=== PATIENT | female | born 1940 | race Caucasian/White ===

== ENCOUNTER 2018-10-14 12:15 | Inpatient (IN) ==
[2018-10-14] MEDS ORDERED: methylPREDNISolone SOD SUC 40 MG/1 ML VIAL IM STA (12:45)
[2018-10-14] MEDS ORDERED: ALBUTEROL 2.5 MG/3 ML NEB RESP TX STA (12:45)
[2018-10-14 13:06] LABS: Basophils # 0.1 10*3/uL (0.0-0.2); Eosinophils # 0.3 10*3/uL (0.0-0.87); Eosinophils % 2.7 % (0.00-10.9); Hematocrit 38.1 VOL% (35.7-47.0); Hemoglobin 12.3 GM/DL (12.0-16.0); Immature Granulocytes % 0.5 %; Immature Granulocytes Absolute 0.06 #; Lymphocytes % 8.6 % (21.3-54.2); Mean Corpuscular HGB Conc 32.3 GM/DL (32-36); Mean Corpuscular Hemoglobin 31 PG (27-34); Mean Platelet Volume 9.5 FL (9.6-12.0); Monocytes # 1.3 10*3/uL (0.11-0.8); Monocytes % 11.1 % (1.7-12.7); Neutrophils # 8.9 10*3/uL (1.4-7.4); Neutrophils % 76.1 % (38.7-73.9); Platelet Count 282 T/CUMM (130-400); Red Blood Count 3.97 MC/CUMM (3.8-5.5); Red Cell Distribution Width 13.5 % (9.3-17.3); White Blood Count 11.7 T/CUMM (4-12)
[2018-10-14 13:32] LABS: Albumin 3.1 G/DL (3.4-5.0); Bilirubin,Total 0.5 MG/DL (0.2-1.0); Calcium 11.7 MG/DL (8.5-10.1); Osmolality,Calculated 277.8 MOS/KG (273-304); Potassium 3.9 MMOL/L (3.5-5.1)
[2018-10-14] MEDS ORDERED: ACETAMINOPHEN 325 MG TABLET PO PRN ×3 (14:24→17:48)
[2018-10-14] MEDS ORDERED: ONDANSETRON 4 MG/2 ML VIAL IV PRN ×3 (14:24→17:48)
[2018-10-14] MEDS ORDERED: ALBUTEROL 2.5 MG/3 ML NEB RESP TX PRN ×3 (14:27→17:48)
[2018-10-14] MEDS ORDERED: SODIUM CHLORIDE 0.45% 1,000 ML IV SCH ×2 (14:30→17:30)
[2018-10-14] MEDS ORDERED: ENOXAPARIN 40 MG/0.4 ML SYRINGE SUBCUT SCH ×2 (16:00→21:00)
[2018-10-14] MEDS ORDERED: methylPREDNISolone SOD SUC 40 MG/1 ML VIAL IV SCH ×2 (17:48→21:30)
[2018-10-14] MEDS ORDERED: LEVOFLOXACIN INJ 250 MG in PREMIX 1 EACH IV SCH (17:48)
[2018-10-14] MEDS: SODIUM CHLORIDE 0.45% 1,000 ML IV SCH (18:00)
[2018-10-14] MEDS ORDERED: ALBUTEROL 2.5 MG/3 ML NEB RESP TX SCH ×2 (19:00)
[2018-10-14] MEDS ORDERED: ARFORMOTEROL 15 MCG/2 ML NEB RESP TX SCH (19:00)
[2018-10-14] MEDS: ALBUTEROL 2.5 MG/3 ML NEB RESP TX SCH (20:40)
[2018-10-14] MEDS ORDERED: DOCUSATE SODIUM 100 MG CAPSULE PO SCH ×3 (21:00)
[2018-10-14] MEDS ORDERED: VERAPAMIL SR 180 MG TABLET PO SCH (21:00)
[2018-10-14] MEDS ORDERED: AZELASTINE NASAL 137 MCG/SPRAY 30 ML BOTTLE BOTH NARES SCH (21:00)
[2018-10-14] MEDS ORDERED: BUDESONIDE 0.5 MG/2 ML NEB RESP TX SCH (21:00)
[2018-10-14] MEDS: methylPREDNISolone SOD SUC 40 MG/1 ML VIAL IV SCH (22:29)
[2018-10-14] MEDS: LEVOFLOXACIN INJ 250 MG in PREMIX 1 EACH IV SCH (22:29)
[2018-10-14] MEDS: DOCUSATE SODIUM 100 MG CAPSULE PO SCH (22:30)
[2018-10-14] MEDS: ENOXAPARIN 40 MG/0.4 ML SYRINGE SUBCUT SCH (22:30)
[2018-10-14] MEDS: ZALEPLON 5 MG CAPSULE PO PRN (22:30)
[2018-10-15] MEDS: ALBUTEROL 2.5 MG/3 ML NEB RESP TX SCH ×3 (00:42→13:52)
[2018-10-15] MEDS: methylPREDNISolone SOD SUC 40 MG/1 ML VIAL IV SCH ×3 (06:40→21:32)
[2018-10-15] MEDS ORDERED: PANTOPRAZOLE 40 MG TABLET PO SCH ×2 (09:00)
[2018-10-15] MEDS ORDERED: TRIAMTERENE/HCTZ 37.5-25 MG TABLET PO SCH (09:00)
[2018-10-15] MEDS ORDERED: DHA PO SCH (09:00)
[2018-10-15] MEDS ORDERED: CHOLECALCIFEROL 4000 UNIT PO SCH (09:00)
[2018-10-15] MEDS ORDERED: OMEGA PO SCH (09:00)
[2018-10-15] MEDS ORDERED: [UNRECOGNIZED DRUG - OTHER] PO SCH (09:00)
[2018-10-15] MEDS ORDERED: CETIRIZINE 10 MG TABLET PO SCH (09:00)
[2018-10-15] MEDS ORDERED: ASPIRIN EC 81 MG TABLET PO SCH (09:00)
[2018-10-15] MEDS ORDERED: FISH OIL PO SCH (09:00)
[2018-10-15] MEDS ORDERED: EPA PO SCH (09:00)
[2018-10-15] MEDS ORDERED: LEVOFLOXACIN 500 MG TABLET PO SCH (09:00)
[2018-10-15] MEDS ORDERED: NON-FORMULARY MEDICATION (Biotin [Biotin] 10,000 MCG) PO SCH (09:00)
[2018-10-15] MEDS ORDERED: NON-FORMULARY MEDICATION (Saccharomyces Boulardii [Probiotic] 250 MG) PO SCH (09:00)
[2018-10-15] MEDS: valACYclovir 500 MG TABLET PO SCH ×3 (10:17→21:32)
[2018-10-15] MEDS: DOCUSATE SODIUM 100 MG CAPSULE PO SCH ×2 (10:19→21:32)
[2018-10-15] MEDS: METOPROLOL TARTRATE 25 MG TABLET PO SCH (10:19)
[2018-10-15] MEDS: PANTOPRAZOLE 40 MG TABLET PO SCH (10:19)
[2018-10-15] MEDS: CLINDAMYCIN INJ 300 MG in PREMIX 1 EACH IV SCH ×2 (13:44→18:17)
[2018-10-15] MEDS: MONTELUKAST 10 MG TABLET PO SCH (13:45)
[2018-10-15] MEDS: ALBUTEROL 2 MG TABLET PO SCH ×2 (13:45→21:33)
[2018-10-15 13:53] LABS: Calcium 11.3 MG/DL (8.5-10.1); Osmolality,Calculated 282.7 MOS/KG (273-304); Potassium 3.7 MMOL/L (3.5-5.1)
[2018-10-15] MEDS ORDERED: THEOPHYLLINE ER 100 MG TABLET PO SCH (17:00)
[2018-10-15] MEDS: THEOPHYLLINE ER 300 MG TABLET PO SCH (18:17)
[2018-10-15] MEDS: FLUCONAZOLE 150 MG TABLET PO SCH (21:32)
[2018-10-15] MEDS: ZALEPLON 5 MG CAPSULE PO PRN (21:32)
[2018-10-15] MEDS: ENOXAPARIN 40 MG/0.4 ML SYRINGE SUBCUT SCH (21:33)
[2018-10-15] MEDS: LEVOFLOXACIN INJ 250 MG in PREMIX 1 EACH IV SCH (21:38)
[2018-10-16] MEDS: CLINDAMYCIN INJ 300 MG in PREMIX 1 EACH IV SCH ×4 (01:38→18:14)
[2018-10-16 03:48] LABS: Basophils % 0.1 % (0.0-0.8); Hematocrit 38.7 VOL% (35.7-47.0); Hemoglobin 12.7 GM/DL (12.0-16.0); Immature Granulocytes % 0.7 %; Immature Granulocytes Absolute 0.13 #; Lymphocytes # 1.2 10*3/uL (1.4-4.0); Mean Corpuscular HGB Conc 32.8 GM/DL (32-36); Mean Corpuscular Hemoglobin 32 PG (27-34); Mean Corpuscular Volume 96.3 FL (87-102); Mean Platelet Volume 9.5 FL (9.6-12.0); Monocytes # 0.8 10*3/uL (0.11-0.8); Monocytes % 4.2 % (1.7-12.7); Neutrophils # 17.7 10*3/uL (1.4-7.4); Platelet Count 312 T/CUMM (130-400); Red Blood Count 4.02 MC/CUMM (3.8-5.5); Red Cell Distribution Width 13.4 % (9.3-17.3); White Blood Count 19.9 T/CUMM (4-12)
[2018-10-16 04:24] LABS: Calcium 10.9 MG/DL (8.5-10.1); Osmolality,Calculated 290.3 MOS/KG (273-304); Potassium 3.4 MMOL/L (3.5-5.1)
[2018-10-16] MEDS: methylPREDNISolone SOD SUC 40 MG/1 ML VIAL IV SCH ×3 (06:31→22:01)
[2018-10-16] MEDS: ALBUTEROL 2 MG TABLET PO SCH ×3 (06:32→22:00)
[2018-10-16] MEDS: DOCUSATE SODIUM 100 MG CAPSULE PO SCH ×2 (09:18→21:59)
[2018-10-16] MEDS: valACYclovir 500 MG TABLET PO SCH ×3 (09:18→21:59)
[2018-10-16] MEDS: MONTELUKAST 10 MG TABLET PO SCH (09:18)
[2018-10-16] MEDS: PANTOPRAZOLE 40 MG TABLET PO SCH (09:18)
[2018-10-16] MEDS: METOPROLOL TARTRATE 25 MG TABLET PO SCH (09:18)
[2018-10-16] MEDS: THEOPHYLLINE ER 300 MG TABLET PO SCH ×2 (09:18→17:02)
[2018-10-16] MEDS: AZELASTINE NASAL 137 MCG/SPRAY 30 ML BOTTLE BOTH NARES SCH ×2 (15:50→22:01)
[2018-10-16] MEDS: ZALEPLON 5 MG CAPSULE PO SCH (21:59)
[2018-10-16] MEDS: FLUCONAZOLE 150 MG TABLET PO SCH (21:59)
[2018-10-16] MEDS: LEVOFLOXACIN INJ 250 MG in PREMIX 1 EACH IV SCH (22:00)
[2018-10-16] MEDS: ENOXAPARIN 40 MG/0.4 ML SYRINGE SUBCUT SCH (22:00)
[2018-10-17] MEDS: CLINDAMYCIN INJ 300 MG in PREMIX 1 EACH IV SCH ×4 (02:36→18:10)
[2018-10-17] MEDS: methylPREDNISolone SOD SUC 40 MG/1 ML VIAL IV SCH ×3 (06:32→21:36)
[2018-10-17] MEDS: ALBUTEROL 2 MG TABLET PO SCH ×3 (06:35→21:37)
[2018-10-17 08:24] LABS: Osmolality,Calculated 291.1 MOS/KG (273-304); Potassium 3.5 MMOL/L (3.5-5.1)
[2018-10-17] MEDS: METOPROLOL TARTRATE 25 MG TABLET PO SCH (09:37)
[2018-10-17] MEDS: THEOPHYLLINE ER 300 MG TABLET PO SCH ×2 (09:38→16:38)
[2018-10-17] MEDS: PANTOPRAZOLE 40 MG TABLET PO SCH (09:38)
[2018-10-17] MEDS: MONTELUKAST 10 MG TABLET PO SCH (09:38)
[2018-10-17] MEDS: AZELASTINE NASAL 137 MCG/SPRAY 30 ML BOTTLE BOTH NARES SCH ×2 (09:38→21:38)
[2018-10-17] MEDS: DOCUSATE SODIUM 100 MG CAPSULE PO SCH ×2 (09:38→21:37)
[2018-10-17] MEDS: valACYclovir 500 MG TABLET PO SCH ×3 (09:38→22:02)
[2018-10-17] MEDS: DORNASE ALFA 2.5 MG/2.5 ML VIAL RESP TX SCH ×2 (12:34→20:31)
[2018-10-17] MEDS: SODIUM CHLORIDE 0.45% 1,000 ML IV SCH ×2 (15:37→15:38)
[2018-10-17] MEDS: ENOXAPARIN 40 MG/0.4 ML SYRINGE SUBCUT SCH (21:37)
[2018-10-17] MEDS: ZALEPLON 5 MG CAPSULE PO SCH (21:37)
[2018-10-17] MEDS: LEVOFLOXACIN INJ 250 MG in PREMIX 1 EACH IV SCH (21:38)
[2018-10-18] MEDS: CLINDAMYCIN INJ 300 MG in PREMIX 1 EACH IV SCH ×4 (00:57→20:28)
[2018-10-18] MEDS: methylPREDNISolone SOD SUC 40 MG/1 ML VIAL IV SCH ×3 (04:55→20:28)
[2018-10-18] MEDS: SODIUM CHLORIDE 0.45% 1,000 ML IV SCH ×2 (04:58→10:24)
[2018-10-18 05:24] LABS: Basophils % 0.2 % (0.0-0.8); Hematocrit 34.3 VOL% (35.7-47.0); Hemoglobin 11.2 GM/DL (12.0-16.0); Immature Granulocytes % 1.6 %; Lymphocytes # 1.2 10*3/uL (1.4-4.0); Lymphocytes % 9.5 % (21.3-54.2); Mean Corpuscular HGB Conc 32.7 GM/DL (32-36); Mean Corpuscular Hemoglobin 31 PG (27-34); Mean Corpuscular Volume 96.1 FL (87-102); Mean Platelet Volume 10.5 FL (9.6-12.0); Monocytes # 0.7 10*3/uL (0.11-0.8); Monocytes % 5.8 % (1.7-12.7); Neutrophils # 10.5 10*3/uL (1.4-7.4); Neutrophils % 82.9 % (38.7-73.9); Platelet Count 275 T/CUMM (130-400); Red Blood Count 3.57 MC/CUMM (3.8-5.5); Red Cell Distribution Width 13.6 % (9.3-17.3); White Blood Count 12.7 T/CUMM (4-12)
[2018-10-18 05:57] LABS: Calcium 9.7 MG/DL (8.5-10.1); Osmolality,Calculated 295.8 MOS/KG (273-304); Potassium 3.3 MMOL/L (3.5-5.1)
[2018-10-18] MEDS: ALBUTEROL 2 MG TABLET PO SCH ×3 (06:07→21:51)
[2018-10-18] MEDS: DORNASE ALFA 2.5 MG/2.5 ML VIAL RESP TX SCH ×2 (07:49→19:30)
[2018-10-18] MEDS: DOCUSATE SODIUM 100 MG CAPSULE PO SCH ×2 (10:26→20:28)
[2018-10-18] MEDS: METOPROLOL TARTRATE 25 MG TABLET PO SCH (10:26)
[2018-10-18] MEDS: MONTELUKAST 10 MG TABLET PO SCH (10:26)
[2018-10-18] MEDS: THEOPHYLLINE ER 300 MG TABLET PO SCH ×2 (10:26→17:20)
[2018-10-18] MEDS: PANTOPRAZOLE 40 MG TABLET PO SCH (10:26)
[2018-10-18] MEDS: AZELASTINE NASAL 137 MCG/SPRAY 30 ML BOTTLE BOTH NARES SCH ×2 (10:27→20:28)
[2018-10-18] MEDS: ENOXAPARIN 40 MG/0.4 ML SYRINGE SUBCUT SCH (20:28)
[2018-10-18] MEDS: ZALEPLON 5 MG CAPSULE PO SCH (20:28)
[2018-10-18] MEDS: LEVOFLOXACIN INJ 250 MG in PREMIX 1 EACH IV SCH (21:52)
[2018-10-19] MEDS: CLINDAMYCIN INJ 300 MG in PREMIX 1 EACH IV SCH ×4 (01:16→21:55)
[2018-10-19] MEDS: methylPREDNISolone SOD SUC 40 MG/1 ML VIAL IV SCH ×3 (05:31→20:40)
[2018-10-19] MEDS: ALBUTEROL 2 MG TABLET PO SCH ×3 (05:31→22:21)
[2018-10-19] MEDS: SODIUM CHLORIDE 0.45% 1,000 ML IV SCH (07:34)
[2018-10-19] MEDS: DORNASE ALFA 2.5 MG/2.5 ML VIAL RESP TX SCH ×2 (07:35→19:47)
[2018-10-19] MEDS: MONTELUKAST 10 MG TABLET PO SCH (08:13)
[2018-10-19] MEDS: METOPROLOL TARTRATE 25 MG TABLET PO SCH (08:13)
[2018-10-19] MEDS: DOCUSATE SODIUM 100 MG CAPSULE PO SCH ×2 (08:13→20:50)
[2018-10-19] MEDS: PANTOPRAZOLE 40 MG TABLET PO SCH (08:13)
[2018-10-19] MEDS: THEOPHYLLINE ER 300 MG TABLET PO SCH ×2 (08:13→17:35)
[2018-10-19] MEDS: AZELASTINE NASAL 137 MCG/SPRAY 30 ML BOTTLE BOTH NARES SCH ×2 (08:17→20:54)
[2018-10-19] MEDS: LEVOFLOXACIN INJ 250 MG in PREMIX 1 EACH IV SCH (20:47)
[2018-10-19] MEDS: ZALEPLON 5 MG CAPSULE PO SCH (20:50)
[2018-10-19] MEDS: ENOXAPARIN 40 MG/0.4 ML SYRINGE SUBCUT SCH (20:52)
[2018-10-20] MEDS: CLINDAMYCIN INJ 300 MG in PREMIX 1 EACH IV SCH ×4 (03:22→21:39)
[2018-10-20] MEDS: methylPREDNISolone SOD SUC 40 MG/1 ML VIAL IV SCH ×2 (05:18→21:51)
[2018-10-20] MEDS: ALBUTEROL 2 MG TABLET PO SCH ×3 (06:17→21:39)
[2018-10-20] MEDS: SODIUM CHLORIDE 0.45% 1,000 ML IV SCH (06:58)
[2018-10-20] MEDS ORDERED: HYDROcodone/CHLORPHENIRAMINE ER 5 ML UDCUP PO ONE (07:00)
[2018-10-20] MEDS ORDERED: GLYCOPYRROLATE 0.4 MG/2 ML VIAL IM ONE (07:00)
[2018-10-20] MEDS ORDERED: PROMETHAZINE 25 MG/1 ML VIAL IM ONE (07:00)
[2018-10-20] MEDS ORDERED: MIDAZOLAM 2 MG/2 ML VIAL ONE (07:19)
[2018-10-20] MEDS ORDERED: LIDOCAINE 1% 20 ML VIAL MISC INJ ONE (07:30)
[2018-10-20] MEDS ORDERED: LIDOCAINE 2% 20 ML VIAL RESP TX ONE (07:30)
[2018-10-20] MEDS ORDERED: LIDOCAINE 2% VISCOUS 100 ML BOTTLE SWISH/SPIT ONE (07:30)
[2018-10-20] MEDS ORDERED: MIDAZOLAM 2 MG/2 ML VIAL IV ONE (07:30)
[2018-10-20] MEDS: DORNASE ALFA 2.5 MG/2.5 ML VIAL RESP TX SCH (07:50)
[2018-10-20] MEDS: METOPROLOL TARTRATE 25 MG TABLET PO SCH (09:46)
[2018-10-20] MEDS: PANTOPRAZOLE 40 MG TABLET PO SCH (09:46)
[2018-10-20] MEDS: THEOPHYLLINE ER 300 MG TABLET PO SCH ×2 (09:46→16:49)
[2018-10-20] MEDS: DOCUSATE SODIUM 100 MG CAPSULE PO SCH ×2 (09:46→20:25)
[2018-10-20] MEDS: MONTELUKAST 10 MG TABLET PO SCH (09:46)
[2018-10-20] MEDS: AZELASTINE NASAL 137 MCG/SPRAY 30 ML BOTTLE BOTH NARES SCH ×2 (09:47→20:24)
[2018-10-20] MEDS: LEVOFLOXACIN INJ 250 MG in PREMIX 1 EACH IV SCH ×2 (20:23→20:35)
[2018-10-20] MEDS: ENOXAPARIN 40 MG/0.4 ML SYRINGE SUBCUT SCH (20:25)
[2018-10-20] MEDS: ZALEPLON 5 MG CAPSULE PO SCH (21:39)
[2018-10-21] MEDS: CLINDAMYCIN INJ 300 MG in PREMIX 1 EACH IV SCH (05:50)
[2018-10-21] MEDS: ALBUTEROL 2 MG TABLET PO SCH ×3 (07:11→22:13)
[2018-10-21] MEDS: MONTELUKAST 10 MG TABLET PO SCH (08:44)
[2018-10-21] MEDS: DOCUSATE SODIUM 100 MG CAPSULE PO SCH ×2 (08:44→20:39)
[2018-10-21] MEDS: POTASSIUM CHLORIDE 20 MEQ TABLET PO PRN ×3 (08:44→13:16)
[2018-10-21] MEDS: THEOPHYLLINE ER 300 MG TABLET PO SCH ×2 (08:44→16:58)
[2018-10-21] MEDS: METOPROLOL TARTRATE 25 MG TABLET PO SCH (08:44)
[2018-10-21] MEDS: PANTOPRAZOLE 40 MG TABLET PO SCH (08:44)
[2018-10-21] MEDS: methylPREDNISolone SOD SUC 40 MG/1 ML VIAL IV SCH ×2 (08:45→20:35)
[2018-10-21] MEDS: AZELASTINE NASAL 137 MCG/SPRAY 30 ML BOTTLE BOTH NARES SCH ×2 (08:45→20:41)
[2018-10-21] MEDS: LEVOFLOXACIN INJ 250 MG in PREMIX 1 EACH IV SCH (20:37)
[2018-10-21] MEDS: ZALEPLON 5 MG CAPSULE PO SCH (20:39)
[2018-10-21] MEDS: ENOXAPARIN 40 MG/0.4 ML SYRINGE SUBCUT SCH (20:40)
[2018-10-22] MEDS: ALBUTEROL 2 MG TABLET PO SCH ×2 (07:17→15:25)
[2018-10-22] MEDS: AZELASTINE NASAL 137 MCG/SPRAY 30 ML BOTTLE BOTH NARES SCH (08:52)
[2018-10-22] MEDS: THEOPHYLLINE ER 300 MG TABLET PO SCH (08:53)
[2018-10-22] MEDS: DOCUSATE SODIUM 100 MG CAPSULE PO SCH (08:53)
[2018-10-22] MEDS: METOPROLOL TARTRATE 25 MG TABLET PO SCH (08:53)
[2018-10-22] MEDS: PANTOPRAZOLE 40 MG TABLET PO SCH (08:53)
[2018-10-22] MEDS: MONTELUKAST 10 MG TABLET PO SCH (08:53)
[2018-10-22] MEDS: methylPREDNISolone SOD SUC 40 MG/1 ML VIAL IV SCH (08:53)
[2018-10-22 11:42] VITALS: BP 150/83
== END 2018-10-22 16:33 | disposition home health service (06) | DRG 166 ==
LOC: N.ED 12:15 → N.EDINP 14:24 → N.2E 16:42
PROVIDERS: ADMIT Family Medicine; ATTEND Family Medicine

== ENCOUNTER 2019-11-09 05:42 | Inpatient (IN) ==
[2019-11-07 12:02] LABS: Basophils # 0.1 10*3/uL (0.0-0.2); Basophils % 1.3 % (0.0-0.8); Eosinophils # 0.2 10*3/uL (0.0-0.87); Eosinophils % 2.5 % (0.00-10.9); Hematocrit 42.8 VOL% (35.7-47.0); Hemoglobin 13.8 GM/DL (12.0-16.0); Immature Granulocytes % 0.2 %; Immature Granulocytes Absolute 0.01 #; Lymphocytes # 1.8 10*3/uL (1.4-4.0); Lymphocytes % 29.3 % (21.3-54.2); Mean Corpuscular HGB Conc 32.2 GM/DL (32-36); Mean Corpuscular Volume 95.3 FL (87-102); Mean Platelet Volume 10.4 FL (9.6-12.0); Monocytes % 10.5 % (1.7-12.7); Neutrophils % 56.2 % (38.7-73.9); Platelet Count 200 T/CUMM (130-400); Red Blood Count 4.49 MC/CUMM (3.8-5.5); Red Cell Distribution Width 12.3 % (9.3-17.3)
[2019-11-07 12:31] LABS: Albumin 3.5 G/DL (3.4-5.0); Bilirubin,Total 0.7 MG/DL (0.2-1.0); Calcium 9.9 MG/DL (8.5-10.1); Osmolality,Calculated 279.3 MOS/KG (273-304); Total Protein 7.4 G/DL (6.4-8.3)
[2019-11-09] MEDS ORDERED: ceFAZolin 1,000 MG VIAL ONE (06:00)
[2019-11-09] MEDS ORDERED: LACTATED RINGERS 1,000 ML IV SCH (06:30)
[2019-11-09] MEDS ORDERED: BUPIVACAINE 0.25% /EPI 10 ML VIAL ONE (06:52)
[2019-11-09] MEDS ORDERED: LIDOCAINE 1%/EPI INJ 20 ML VIAL ONE (06:52)
[2019-11-09] MEDS ORDERED: TISSUE ADHESIVE 1 EACH APPLICATOR TOP ONE (06:52)
[2019-11-09] MEDS ORDERED: CLINDAMYCIN INJ 50 ML IV ONE (07:10)
[2019-11-09] MEDS ORDERED: CLINDAMYCIN INJ 900 MG in PREMIX 1 EACH IV STA (07:16)
[2019-11-09] MEDS ORDERED: FAMOTIDINE 20 MG/2 ML VIAL IV ONE (07:40)
[2019-11-09] MEDS ORDERED: ALBUTEROL/IPRATROPIUM 3 ML NEB RESP TX PRN (08:28)
[2019-11-09] MEDS ORDERED: ACETAMINOPHEN 325 MG TABLET PO PRN (08:28)
[2019-11-09] MEDS ORDERED: KETOROLAC 15 MG/1 ML VIAL IV PRN (08:28)
[2019-11-09] MEDS ORDERED: BISACODYL 5 MG TABLET PO PRN (08:33)
[2019-11-09] MEDS ORDERED: propofoL 200 MG/20 ML VIAL IV ONE (08:36)
[2019-11-09] MEDS ORDERED: LIDOCAINE 2% 5 ML VIAL ONE (08:36)
[2019-11-09] MEDS ORDERED: GLYCOPYRROLATE 0.4 MG/2 ML VIAL ONE (08:37)
[2019-11-09] MEDS ORDERED: ROCURONIUM 100 MG/10 ML VIAL IV ONE (08:37)
[2019-11-09] MEDS ORDERED: NEOSTIGMINE 10 MG/10 ML VIAL ONE (08:37)
[2019-11-09] MEDS ORDERED: SEVOFLURANE 1 UNIT/15 MINUTE INH ONE (08:37)
[2019-11-09] MEDS ORDERED: ACETAMINOPHEN 1,000 MG/100 ML VIAL IV ONE (08:37)
[2019-11-09] MEDS ORDERED: fentaNYL 100 MCG/2 ML VIAL ONE (08:37)
[2019-11-09] MEDS ORDERED: DEXAMETHASONE 4 MG/1 ML VIAL ONE (08:37)
[2019-11-09] MEDS ORDERED: ONDANSETRON 4 MG/2 ML VIAL IV PRN (08:38)
[2019-11-09] MEDS: HYDROmorphone 2 MG/1 ML VIAL IV PRN ×2 (08:43→09:15)
[2019-11-09] MEDS: BUDESONIDE 0.5 MG/2 ML NEB RESP TX SCH ×2 (10:40→19:21)
[2019-11-09] MEDS: METOPROLOL TARTRATE 25 MG TABLET PO SCH ×2 (12:00→21:20)
[2019-11-09] MEDS: VERAPAMIL SR 180 MG TABLET PO SCH (12:00)
[2019-11-09] MEDS: TRIAMTERENE/HCTZ 37.5-25 MG TABLET PO SCH (12:09)
[2019-11-09] MEDS: PANTOPRAZOLE 40 MG TABLET PO SCH (12:10)
[2019-11-09] MEDS ORDERED: ALBUTEROL 2.5 MG/3 ML NEB RESP TX PRN (13:00)
[2019-11-09] MEDS: ONDANSETRON 4 MG/2 ML VIAL IV PRN (14:32)
[2019-11-09] MEDS: CLINDAMYCIN INJ 900 MG in PREMIX 1 EACH IV SCH ×2 (15:01→22:18)
[2019-11-09] MEDS: LACTATED RINGERS 1,000 ML IV SCH ×3 (15:03→23:30)
[2019-11-09] MEDS: ARFORMOTEROL 15 MCG/2 ML NEB RESP TX SCH (19:19)
[2019-11-09] MEDS: MELATONIN 3 MG TABLET PO SCH (21:20)
[2019-11-10 05:07] LABS: Basophils % 0.2 % (0.0-0.8); Hematocrit 36.9 VOL% (35.7-47.0); Hemoglobin 12.1 GM/DL (12.0-16.0); Immature Granulocytes % 0.2 %; Immature Granulocytes Absolute 0.02 #; Lymphocytes # 1.1 10*3/uL (1.4-4.0); Mean Corpuscular HGB Conc 32.8 GM/DL (32-36); Mean Corpuscular Volume 93.7 FL (87-102); Mean Platelet Volume 11.1 FL (9.6-12.0); Neutrophils % 78.6 % (38.7-73.9); Platelet Count 194 T/CUMM (130-400); Red Blood Count 3.94 MC/CUMM (3.8-5.5); White Blood Count 8.1 T/CUMM (4-12)
[2019-11-10 05:14] LABS: PT Patient Result 10.7 SECS (9.6-12.2)
[2019-11-10 05:40] LABS: Albumin 2.9 G/DL (3.4-5.0); Bilirubin,Total 1.3 MG/DL (0.2-1.0); Osmolality,Calculated 284.1 MOS/KG (273-304); Total Protein 6.2 G/DL (6.4-8.3)
[2019-11-10] MEDS: BUDESONIDE 0.5 MG/2 ML NEB RESP TX SCH ×2 (07:26→20:02)
[2019-11-10] MEDS: ARFORMOTEROL 15 MCG/2 ML NEB RESP TX SCH ×2 (07:26→20:02)
[2019-11-10] MEDS: LACTATED RINGERS 1,000 ML IV SCH ×4 (07:54→18:25)
[2019-11-10] MEDS ORDERED: INDOMETHACIN SUPP 50 MG SUPP RECTAL ONE ×2 (08:00→11:26)
[2019-11-10] MEDS: PANTOPRAZOLE 40 MG TABLET PO SCH (08:47)
[2019-11-10] MEDS: METOPROLOL TARTRATE 25 MG TABLET PO SCH ×2 (08:47→20:09)
[2019-11-10] MEDS: VERAPAMIL SR 180 MG TABLET PO SCH (08:47)
[2019-11-10] MEDS: TRIAMTERENE/HCTZ 37.5-25 MG TABLET PO SCH (08:47)
[2019-11-10] MEDS ORDERED: LIDOCAINE 2% 5 ML VIAL ONE (10:00)
[2019-11-10] MEDS ORDERED: ONDANSETRON 4 MG/2 ML VIAL ONE (10:00)
[2019-11-10] MEDS ORDERED: ESMOLOL 100 MG/10 ML VIAL IV ONE (10:00)
[2019-11-10] MEDS ORDERED: ROCURONIUM 100 MG/10 ML VIAL IV ONE (10:00)
[2019-11-10] MEDS ORDERED: fentaNYL 100 MCG/2 ML VIAL ONE (13:07)
[2019-11-10] MEDS ORDERED: SEVOFLURANE 1 UNIT/15 MINUTE INH ONE (15:27)
[2019-11-10] MEDS: MELATONIN 3 MG TABLET PO SCH (20:09)
[2019-11-11] MEDS: LACTATED RINGERS 1,000 ML IV SCH ×4 (01:55→20:52)
[2019-11-11 05:54] LABS: Basophils % 0.4 % (0.0-0.8); Eosinophils % 0.5 % (0.00-10.9); Hematocrit 36.3 VOL% (35.7-47.0); Immature Granulocytes % 0.1 %; Immature Granulocytes Absolute 0.01 #; Lymphocytes # 1.4 10*3/uL (1.4-4.0); Lymphocytes % 18.1 % (21.3-54.2); Mean Corpuscular HGB Conc 33.1 GM/DL (32-36); Mean Corpuscular Volume 93.1 FL (87-102); Mean Platelet Volume 10.8 FL (9.6-12.0); Monocytes % 9.3 % (1.7-12.7); Neutrophils % 71.6 % (38.7-73.9); Platelet Count 171 T/CUMM (130-400); Red Cell Distribution Width 12.4 % (9.3-17.3); White Blood Count 7.8 T/CUMM (4-12)
[2019-11-11 06:18] LABS: Albumin 2.7 G/DL (3.4-5.0); Bilirubin,Total 1.1 MG/DL (0.2-1.0); Calcium 8.4 MG/DL (8.5-10.1); Osmolality,Calculated 279.3 MOS/KG (273-304); Total Protein 5.6 G/DL (6.4-8.3)
[2019-11-11] MEDS: BUDESONIDE 0.5 MG/2 ML NEB RESP TX SCH ×2 (08:09→19:45)
[2019-11-11] MEDS: ARFORMOTEROL 15 MCG/2 ML NEB RESP TX SCH ×2 (08:09→19:45)
[2019-11-11] MEDS: PANTOPRAZOLE 40 MG TABLET PO SCH (08:50)
[2019-11-11] MEDS: METOPROLOL TARTRATE 25 MG TABLET PO SCH ×2 (08:50→20:52)
[2019-11-11] MEDS: TRIAMTERENE/HCTZ 37.5-25 MG TABLET PO SCH (08:51)
[2019-11-11] MEDS: ASPIRIN EC 81 MG TABLET PO SCH (08:51)
[2019-11-11] MEDS: VERAPAMIL SR 180 MG TABLET PO SCH (08:51)
[2019-11-11] MEDS: ONDANSETRON 4 MG/2 ML VIAL IV PRN ×2 (10:11→20:54)
[2019-11-11] MEDS: MORPHINE 4 MG/1 ML VIAL IV PRN ×2 (10:11→20:55)
[2019-11-11] MEDS: MELATONIN 3 MG TABLET PO SCH (20:53)
[2019-11-12] MEDS: LACTATED RINGERS 1,000 ML IV SCH ×4 (02:05→21:08)
[2019-11-12 06:08] LABS: Basophils % 0.3 % (0.0-0.8); Eosinophils # 0.1 10*3/uL (0.0-0.87); Eosinophils % 0.6 % (0.00-10.9); Hematocrit 34.8 VOL% (35.7-47.0); Hemoglobin 11.6 GM/DL (12.0-16.0); Immature Granulocytes % 0.4 %; Immature Granulocytes Absolute 0.04 #; Lymphocytes # 1.4 10*3/uL (1.4-4.0); Lymphocytes % 13.7 % (21.3-54.2); Mean Corpuscular HGB Conc 33.3 GM/DL (32-36); Mean Corpuscular Volume 92.6 FL (87-102); Mean Platelet Volume 10.7 FL (9.6-12.0); Monocytes % 10.7 % (1.7-12.7); Neutrophils % 74.3 % (38.7-73.9); Platelet Count 171 T/CUMM (130-400); Red Blood Count 3.76 MC/CUMM (3.8-5.5); Red Cell Distribution Width 12.2 % (9.3-17.3); White Blood Count 10.2 T/CUMM (4-12)
[2019-11-12 06:26] LABS: Albumin 2.4 G/DL (3.4-5.0); Bilirubin,Total 0.9 MG/DL (0.2-1.0); Calcium 8.1 MG/DL (8.5-10.1); Osmolality,Calculated 269.8 MOS/KG (273-304); Total Protein 5.3 G/DL (6.4-8.3)
[2019-11-12] MEDS: ARFORMOTEROL 15 MCG/2 ML NEB RESP TX SCH ×2 (08:01→19:29)
[2019-11-12] MEDS: BUDESONIDE 0.5 MG/2 ML NEB RESP TX SCH ×2 (08:01→19:29)
[2019-11-12] MEDS: ASPIRIN EC 81 MG TABLET PO SCH (09:13)
[2019-11-12] MEDS: METOPROLOL TARTRATE 25 MG TABLET PO SCH ×2 (09:13→20:07)
[2019-11-12] MEDS: PANTOPRAZOLE 40 MG TABLET PO SCH (09:13)
[2019-11-12] MEDS: TRIAMTERENE/HCTZ 37.5-25 MG TABLET PO SCH (09:13)
[2019-11-12] MEDS: VERAPAMIL SR 180 MG TABLET PO SCH (09:13)
[2019-11-12] MEDS: MORPHINE 4 MG/1 ML VIAL IV PRN (14:18)
[2019-11-12] MEDS: ONDANSETRON 4 MG/2 ML VIAL IV PRN (14:19)
[2019-11-12] MEDS: POTASSIUM CHLORIDE RIDER 10 MEQ in PREMIX 1 EACH IV SCH ×5 (14:21→23:39)
[2019-11-12] MEDS: MELATONIN 3 MG TABLET PO SCH (20:07)
[2019-11-12] MEDS ORDERED: POTASSIUM CHLORIDE RIDER 10 MEQ in PREMIX 1 EACH IV SCH (23:00)
[2019-11-13] MEDS: MORPHINE 4 MG/1 ML VIAL IV PRN ×4 (00:03→19:15)
[2019-11-13] MEDS: ONDANSETRON 4 MG/2 ML VIAL IV PRN ×3 (00:04→14:50)
[2019-11-13 05:27] LABS: Albumin 2.5 G/DL (3.4-5.0); Bilirubin,Total 0.8 MG/DL (0.2-1.0); Calcium 8.5 MG/DL (8.5-10.1); Total Protein 5.8 G/DL (6.4-8.3)
[2019-11-13] MEDS: LACTATED RINGERS 1,000 ML IV SCH ×3 (06:37→13:35)
[2019-11-13] MEDS: BUDESONIDE 0.5 MG/2 ML NEB RESP TX SCH ×2 (07:20→19:21)
[2019-11-13] MEDS: ARFORMOTEROL 15 MCG/2 ML NEB RESP TX SCH ×2 (07:20→19:21)
[2019-11-13] MEDS: ASPIRIN EC 81 MG TABLET PO SCH (08:53)
[2019-11-13] MEDS: TRIAMTERENE/HCTZ 37.5-25 MG TABLET PO SCH (08:53)
[2019-11-13] MEDS: PANTOPRAZOLE 40 MG TABLET PO SCH (08:53)
[2019-11-13] MEDS: VERAPAMIL SR 180 MG TABLET PO SCH (08:54)
[2019-11-13] MEDS: METOPROLOL TARTRATE 25 MG TABLET PO SCH ×2 (08:57→21:27)
[2019-11-13] MEDS: MELATONIN 3 MG TABLET PO SCH (21:27)
[2019-11-14 05:39] LABS: Basophils # 0.1 10*3/uL (0.0-0.2); Basophils % 0.4 % (0.0-0.8); Eosinophils # 0.1 10*3/uL (0.0-0.87); Hematocrit 37.4 VOL% (35.7-47.0); Hemoglobin 12.3 GM/DL (12.0-16.0); Immature Granulocytes % 0.4 %; Immature Granulocytes Absolute 0.06 #; Lymphocytes # 1.2 10*3/uL (1.4-4.0); Mean Corpuscular HGB Conc 32.9 GM/DL (32-36); Mean Platelet Volume 11.3 FL (9.6-12.0); Monocytes % 9.6 % (1.7-12.7); Neutrophils % 79.6 % (38.7-73.9); Platelet Count 204 T/CUMM (130-400); Red Blood Count 3.98 MC/CUMM (3.8-5.5); White Blood Count 13.4 T/CUMM (4-12)
[2019-11-14 05:58] LABS: Albumin 2.6 G/DL (3.4-5.0); Osmolality,Calculated 260.4 MOS/KG (273-304); Total Protein 6.6 G/DL (6.4-8.3)
[2019-11-14] MEDS: BUDESONIDE 0.5 MG/2 ML NEB RESP TX SCH ×2 (08:14→19:40)
[2019-11-14] MEDS: ARFORMOTEROL 15 MCG/2 ML NEB RESP TX SCH ×2 (08:14→19:40)
[2019-11-14] MEDS: VERAPAMIL SR 180 MG TABLET PO SCH (08:22)
[2019-11-14] MEDS: TRIAMTERENE/HCTZ 37.5-25 MG TABLET PO SCH (08:22)
[2019-11-14] MEDS: ASPIRIN EC 81 MG TABLET PO SCH (08:22)
[2019-11-14] MEDS: METOPROLOL TARTRATE 25 MG TABLET PO SCH ×2 (08:22→20:48)
[2019-11-14] MEDS: PANTOPRAZOLE 40 MG TABLET PO SCH (08:22)
[2019-11-14] MEDS: MORPHINE 4 MG/1 ML VIAL IV PRN ×2 (08:25→20:48)
[2019-11-14] MEDS: ONDANSETRON 4 MG/2 ML VIAL IV PRN (08:25)
[2019-11-14] MEDS: LACTATED RINGERS 1,000 ML IV SCH ×3 (09:52→21:32)
[2019-11-14] MEDS: MELATONIN 3 MG TABLET PO SCH (20:48)
[2019-11-15] MEDS: LACTATED RINGERS 1,000 ML IV SCH ×2 (04:30→08:38)
[2019-11-15] MEDS: ARFORMOTEROL 15 MCG/2 ML NEB RESP TX SCH ×2 (06:52→20:36)
[2019-11-15] MEDS: BUDESONIDE 0.5 MG/2 ML NEB RESP TX SCH ×2 (06:52→20:36)
[2019-11-15] MEDS: ASPIRIN EC 81 MG TABLET PO SCH (08:36)
[2019-11-15] MEDS: TRIAMTERENE/HCTZ 37.5-25 MG TABLET PO SCH (08:36)
[2019-11-15] MEDS: VERAPAMIL SR 180 MG TABLET PO SCH (08:37)
[2019-11-15] MEDS: PANTOPRAZOLE 40 MG TABLET PO SCH (08:37)
[2019-11-15] MEDS: METOPROLOL TARTRATE 25 MG TABLET PO SCH ×2 (08:37→21:07)
[2019-11-15] MEDS ORDERED: POTASSIUM CHLORIDE 20 MEQ TABLET PO ONE (09:07)
[2019-11-15 10:24] LABS: Basophils % 0.3 % (0.0-0.8); Eosinophils # 0.2 10*3/uL (0.0-0.87); Eosinophils % 1.7 % (0.00-10.9); Hematocrit 33.4 VOL% (35.7-47.0); Hemoglobin 11.1 GM/DL (12.0-16.0); Immature Granulocytes % 0.4 %; Immature Granulocytes Absolute 0.04 #; Lymphocytes % 11.1 % (21.3-54.2); Mean Corpuscular HGB Conc 33.2 GM/DL (32-36); Mean Corpuscular Volume 91.8 FL (87-102); Mean Platelet Volume 10.2 FL (9.6-12.0); Monocytes % 10.6 % (1.7-12.7); Neutrophils % 75.9 % (38.7-73.9); Platelet Count 224 T/CUMM (130-400); Red Blood Count 3.64 MC/CUMM (3.8-5.5); Red Cell Distribution Width 12.1 % (9.3-17.3); White Blood Count 8.9 T/CUMM (4-12)
[2019-11-15 11:18] LABS: Albumin 2.4 G/DL (3.4-5.0); Bilirubin,Total 0.4 MG/DL (0.2-1.0); Calcium 8.7 MG/DL (8.5-10.1)
[2019-11-15] MEDS: MELATONIN 3 MG TABLET PO SCH (21:07)
[2019-11-16] MEDS: BUDESONIDE 0.5 MG/2 ML NEB RESP TX SCH (07:08)
[2019-11-16] MEDS: ARFORMOTEROL 15 MCG/2 ML NEB RESP TX SCH (07:08)
[2019-11-16] MEDS: VERAPAMIL SR 180 MG TABLET PO SCH (08:19)
[2019-11-16] MEDS: ASPIRIN EC 81 MG TABLET PO SCH (08:20)
[2019-11-16] MEDS: PANTOPRAZOLE 40 MG TABLET PO SCH (08:20)
[2019-11-16] MEDS: METOPROLOL TARTRATE 25 MG TABLET PO SCH (08:20)
[2019-11-16] MEDS: TRIAMTERENE/HCTZ 37.5-25 MG TABLET PO SCH (08:20)
[2019-11-16] MEDS ORDERED: POTASSIUM CHLORIDE 20 MEQ TABLET PO SCH (09:00)
[2019-11-16] MEDS ORDERED: POLYETHYLENE GLYCOL POWDER 17 GM PACK PO PRN (09:18)
[2019-11-16] MEDS ORDERED: FLUTICASONE 50 MCG NASAL SPRAY 16 GM BOTTLE BOTH NARES SCH (09:30)
[2019-11-16 11:07] VITALS: BP 130/55
== END 2019-11-16 14:25 | disposition home or self-care (01) | DRG 417 ==
LOC: N.OR 05:42 → N.SDSINP 05:42 → N.3E 09:37
PROVIDERS: ADMIT Surgery; ATTEND Surgery
PROC: LAPCHOL (2019-11-09 07:00)

== ENCOUNTER 2022-10-08 14:36 | Inpatient (IN) ==
[2022-10-08 15:46] LABS: Albumin 3.7 G/DL (3.4-5.0); Bilirubin,Total 0.4 MG/DL (0.20-1.00); Potassium 3.5 MMOL/L (3.5-5.1); Total Protein 6.4 G/DL (6.4-8.2)
[2022-10-08 15:49] LABS: Basophils # 0.1 10*3/uL (0.0-0.2); Basophils % 0.8 % (0.0-0.8); Eosinophils % 0.5 % (0.00-10.9); Hematocrit 38.4 VOL% (35.7-47.0); Hemoglobin 12.5 GM/DL (12.0-16.0); Immature Granulocytes % 0.5 %; Immature Granulocytes Absolute 0.04 #; Lymphocytes # 1.3 10*3/uL (1.4-4.0); Lymphocytes % 18.2 % (21.3-54.2); Mean Corpuscular HGB Conc 32.6 GM/DL (32-36); Mean Corpuscular Volume 91.6 FL (87-102); Mean Platelet Volume 9.6 FL (9.6-12.0); Monocytes # 0.5 10*3/uL (0.11-0.8); Monocytes % 6.7 % (1.7-12.7); Neutrophils % 73.3 % (38.7-73.9); Platelet Count 150 T/CUMM (130-400); Red Blood Count 4.19 MC/CUMM (3.8-5.5); Red Cell Distribution Width 12.5 % (9.3-17.3); White Blood Count 7.4 T/CUMM (4-12)
[2022-10-08] MEDS ORDERED: MORPHINE 2 MG/1 ML SYRINGE IV PRN (16:14)
[2022-10-08] MEDS ORDERED: MORPHINE 2 MG/1 ML SYRINGE IV ONE (16:14)
[2022-10-08] MEDS ORDERED: ONDANSETRON 4 MG/2 ML VIAL IV ONE (16:14)
[2022-10-08] MEDS ORDERED: ACETAMINOPHEN 325 MG TABLET PO PRN (16:14)
[2022-10-08 16:56] LABS: Lymphocytes 21 % (20-55); Total Cells Counted 100
[2022-10-08 16:57] LABS: Platelet Estimate Adequate
[2022-10-08] MEDS: LACTATED RINGERS 75 ML IV SCH ×2 (18:05→20:10)
[2022-10-08] MEDS: LACTATED RINGERS 1,000 ML IV SCH (18:31)
[2022-10-08] MEDS: ONDANSETRON 4 MG/2 ML VIAL IV PRN (21:45)
[2022-10-09 05:17] LABS: Basophils % 0.5 % (0.0-0.8); Eosinophils # 0.1 10*3/uL (0.0-0.87); Eosinophils % 0.9 % (0.00-10.9); Hematocrit 36.7 VOL% (35.7-47.0); Hemoglobin 11.9 GM/DL (12.0-16.0); Immature Granulocytes % 0.4 %; Immature Granulocytes Absolute 0.03 #; Lymphocytes # 1.8 10*3/uL (1.4-4.0); Lymphocytes % 23.7 % (21.3-54.2); Mean Corpuscular HGB Conc 32.4 GM/DL (32-36); Mean Corpuscular Volume 92.7 FL (87-102); Mean Platelet Volume 9.7 FL (9.6-12.0); Monocytes # 0.9 10*3/uL (0.11-0.8); Monocytes % 12.2 % (1.7-12.7); Neutrophils % 62.3 % (38.7-73.9); Platelet Count 152 T/CUMM (130-400); Red Blood Count 3.96 MC/CUMM (3.8-5.5); Red Cell Distribution Width 12.4 % (9.3-17.3); White Blood Count 7.7 T/CUMM (4-12)
[2022-10-09 05:40] LABS: Albumin 3.2 G/DL (3.4-5.0); Bilirubin,Total 0.5 MG/DL (0.20-1.00); Osmolality,Calculated 269.1 MOS/KG (273-304); Total Protein 6.2 G/DL (6.4-8.2)
[2022-10-09] MEDS: PANTOPRAZOLE 40 MG TABLET PO SCH (08:40)
[2022-10-09] MEDS ORDERED: ROPIVACAINE 0.5% 30 ML VIAL MISC INJ ONE (09:17)
[2022-10-09] MEDS ORDERED: TRIAMCINOLONE ACETONIDE 40 MG/1 ML VIAL MISC INJ ONE (09:17)
[2022-10-09] MEDS ORDERED: ALBUTEROL 2.5 MG/3 ML NEB RESP TX PRN (09:37)
[2022-10-09] MEDS ORDERED: HYDROmorphone 1 MG/1 ML SYRINGE IV PRN (09:42)
[2022-10-09] MEDS ORDERED: KETOROLAC 15 MG/1 ML VIAL IV PRN (09:43)
[2022-10-09] MEDS: LACTATED RINGERS 1,000 ML IV SCH (09:50)
[2022-10-09] MEDS ORDERED: AZITHROMYCIN 250 MG TABLET PO SCH (10:00)
[2022-10-09] MEDS: ONDANSETRON 4 MG/2 ML VIAL IV PRN (11:12)
[2022-10-09] MEDS: ARFORMOTEROL 15 MCG/2 ML NEB RESP TX SCH (19:20)
[2022-10-09] MEDS: BUDESONIDE 0.5 MG/2 ML NEB RESP TX SCH (20:40)
[2022-10-09] MEDS ORDERED: DONEPEZIL 10 MG TABLET PO SCH (21:00)
[2022-10-09] MEDS ORDERED: MELATONIN 3 MG TABLET PO SCH (21:00)
[2022-10-09] MEDS: ONDANSETRON ODT 4 MG TABLET PO PRN (21:50)
[2022-10-09] MEDS: METOPROLOL TARTRATE 25 MG TABLET PO SCH (21:52)
[2022-10-09] MEDS: VERAPAMIL SR 180 MG TABLET PO SCH (21:52)
[2022-10-09] MEDS: AZELASTINE NASAL 137 MCG/SPRAY 30 ML BOTTLE BOTH NARES SCH (21:54)
[2022-10-10] MEDS: ARFORMOTEROL 15 MCG/2 ML NEB RESP TX SCH (06:57)
[2022-10-10] MEDS: BUDESONIDE 0.5 MG/2 ML NEB RESP TX SCH (06:57)
[2022-10-10 07:44] VITALS: BP 168/66
[2022-10-10] MEDS ORDERED: CALCIUM (CARBONATE) 500 MG TABLET PO SCH (08:00)
[2022-10-10] MEDS: METOPROLOL TARTRATE 25 MG TABLET PO SCH (08:01)
[2022-10-10] MEDS: VERAPAMIL SR 180 MG TABLET PO SCH (08:02)
[2022-10-10] MEDS: AZELASTINE NASAL 137 MCG/SPRAY 30 ML BOTTLE BOTH NARES SCH (08:03)
[2022-10-10] MEDS ORDERED: ALBUTEROL INHALER 18 GM INH PRN (08:12)
[2022-10-10] MEDS: PANTOPRAZOLE 40 MG TABLET PO SCH (08:20)
[2022-10-10] MEDS ORDERED: ASPIRIN EC 81 MG TABLET PO SCH (09:00)
[2022-10-10] MEDS ORDERED: predniSONE 5 MG TABLET PO SCH (09:00)
[2022-10-10] MEDS ORDERED: TRIAMTERENE/HCTZ 37.5-25 MG CAPSULE PO SCH (09:00)
[2022-10-10] MEDS ORDERED: CHOLECALCIFEROL 5,000 UNIT TABLET PO SCH (09:00)
[2022-10-10] MEDS ORDERED: POTASSIUM CHLORIDE 10 MEQ TABLET PO SCH (09:00)
[2022-10-10] MEDS ORDERED: BACILLUS COAGULANS CAPLET PO SCH (09:00)
[2022-10-10] MEDS ORDERED: CETIRIZINE 10 MG TABLET PO SCH (09:00)
[2022-10-10] MEDS: ONDANSETRON ODT 4 MG TABLET PO PRN (12:06)
== END 2022-10-10 13:10 | disposition home or self-care (01) | DRG 200 ==
LOC: N.ED 14:36 → N.EDINP 16:14 → N.3E 17:01
PROVIDERS: ADMIT Surgery; ATTEND Surgery